=== PATIENT | female | born 1980 | race Caucasian/White ===

== ENCOUNTER 2018-05-10 09:07 | Emergency (ER) | payer MEDICAID ==
[~2018-05-10] VITALS: Ht 170.2 cm; Wt 111.1 kg
[2018-05-10 09:13] VITALS: Ht 170.2 cm; Wt 111.1 kg
[2018-05-10 10:20] LABS: CALCIUM 8.4 mg/dL (8.5-10.1); CARBON DIOXIDE 24.1 mmol/L (21-32); CHLORIDE SERUM 107 mmol/L (98-107); CREATININE SERUM 0.7 mg/dL (0.6-1.0); GFR1 > 60 mL/min; GLUCOSE SERUM 94 mg/dL (74-106); POTASSIUM SERUM 3.8 mmol/L (3.5-5.1); SODIUM SERUM 141 mmol/L (136-145)
[2018-05-10 10:27] LABS: BASOPHIL % 3.3 % (0-2); PLATELET COUNT 442 x10^3mcL (130-400)
[2018-05-10 11:44] VITALS: BP 117/76
== END 2018-05-10 11:44 | disposition home or self-care (01) ==
LOC: ED 09:07
PROVIDERS: Emergency Medicine
DX: N93.8 Other specified abnormal uterine and vaginal bleeding (principal); N85.8 Other specified noninflammatory disorders of uterus; D64.9 Anemia, unspecified
CPT/HCPCS: 36415

== ENCOUNTER 2019-01-14 23:39 | Emergency (ER) | payer MEDICAID ==
[~2019-01-14] VITALS: Ht 172.7 cm; Wt 114.8 kg
[2019-01-15 00:01] VITALS: BP 123/87; Ht 172.7 cm; Wt 114.8 kg
[2019-01-15 00:57] LABS: BASOPHIL % 1.6 % (0-2); PLATELET COUNT 302 x10^3mcL (130-400)
[2019-01-15 01:25] LABS: RED CELL DISTRIBUTION WIDTH 14.6 % (11.5-14.5)
[2019-01-15 01:48] LABS: microscopic required? YES; urine erythrocyte 3+ (NEGATIVE)
== END 2019-01-15 02:02 | disposition home or self-care (01) ==
LOC: ED 23:39
PROVIDERS: Emergency Medicine
DX: O20.0 Threatened abortion (principal); Z3A.08 8 weeks gestation of pregnancy
CPT/HCPCS: 36415

== ENCOUNTER 2019-01-29 07:26 | Emergency (ER) | payer MEDICAID ==
[~2019-01-29] VITALS: Ht 170.2 cm; Wt 113.9 kg
[2019-01-29 07:29] VITALS: Ht 170.2 cm; Wt 113.9 kg
[2019-01-29 08:34] LABS: microscopic required? YES; urine erythrocyte 3+ (NEGATIVE)
[2019-01-29 08:37] LABS: BASOPHIL % 0.2 % (0-2); PLATELET COUNT 270 x10^3mcL (130-400)
[2019-01-29 08:38] LABS: RED CELL DISTRIBUTION WIDTH 15.3 % (11.5-14.5)
[2019-01-29 12:19] VITALS: BP 135/62
== END 2019-01-29 12:19 | disposition home or self-care (01) ==
LOC: ED 07:26
PROVIDERS: Specialist
DX: O20.0 Threatened abortion (principal)
CPT/HCPCS: 36415

== ENCOUNTER 2019-02-23 17:47 | Emergency (ER) | payer MEDICAID ==
[~2019-02-23] VITALS: Ht 170.2 cm; Wt 113.9 kg
[2019-02-23 17:53] VITALS: Ht 170.2 cm; Wt 113.9 kg
[2019-02-23 20:21] LABS: UA SPECIFIC GRAVITY >=1.030 (1.005-1.035); microscopic required? YES
[2019-02-23 20:22] LABS: urine erythrocyte 1+ (NEGATIVE)
[2019-02-23 22:21] VITALS: BP 139/84
== END 2019-02-23 22:21 | disposition home or self-care (01) ==
LOC: ED 17:47
PROVIDERS: Emergency Medicine
DX: O42.90 Premature rupture of membranes, unspecified as to length of time between rupture and onset of labor, unspecified weeks of gestation (principal); N39.0 Urinary tract infection, site not specified; Z3A.14 14 weeks gestation of pregnancy